=== PATIENT | male | born 1975 | race African-American/Black ===

== ENCOUNTER → 2019-08-27 10:11 | Outpatient (BNVA) | payer BC, SELFPAY | PROVIDERS: Family Provider Family Medicine; PCP Family Medicine; Referring Provider Family Medicine; Visit Provider Specialist | DX: M79.645 Pain in left finger(s) (principal) | CPT/HCPCS: 73140 ==

== ENCOUNTER 2019-08-31 14:06 | Outpatient (RCR) | payer BC, SELFPAY | END 2019-09-11 23:59 | disposition home or self-care (01) | LOC: SOT 14:06 | PROVIDERS: Family Provider Family Medicine; PCP Family Medicine; Referring Provider Specialist; Visit Provider Specialist | DX: M25.542 Pain in joints of left hand (principal) | CPT/HCPCS: 97110; 97165; L3925 ==

== ENCOUNTER 2019-09-12 06:00 | Outpatient (RCR) | payer BC, SELFPAY | END 2019-09-15 23:00 | disposition home or self-care (01) | LOC: SOT 06:00 | PROVIDERS: Family Provider Family Medicine; PCP Family Medicine; Referring Provider Specialist; Visit Provider Specialist | DX: S69.92XD Unspecified injury of left wrist, hand and finger(s), subsequent encounter (principal); X58.XXXD Exposure to other specified factors, subsequent encounter ==